=== PATIENT | male | born 1990 | race African-American/Black ===

== ENCOUNTER 2020-07-05 18:18 | Emergency (ER) | payer SELFPAY ==
[2020-07-05] MEDS ORDERED: BUPIVACAINE 0.5% PF 10 ML VIAL ONE (19:48)
--- NOTE | 2020-07-05 20:14 | ER ---
Nurse's Notes [facility] Name: Paul Garcia Age: 30 yrs Sex: Male : 1990 Arrival Date: 07/05/2020 Time: 18:27 Bed 30 Private MD: Diagnosis: Finger Laceration Presentation: 07/05 18:33 Coronavirus screen: Client denies travel out of the [place] in the last 14 days. At this ll1 time, the client does not indicate any symptoms associated with coronavirus-19. Ebola Screen: Patient denies travel to an Ebola-affected area in the 21 days before illness onset. Complicating Factors: There are no complicating factors for this patient. Initial Sepsis Screen: Does the patient meet any 2 criteria? No. Patient's initial sepsis screen is negative. Does the patient have a suspected source of infection? No. Patient's initial sepsis screen is negative. Risk Assessment: Do you want to hurt yourself or someone else? Patient reports no desire to harm self or others. Onset of symptoms was July 05, 2020. 18:33 Method Of Arrival: Ambulatory ll1 18:33 Acuity: MILANA 4 ll1 18:38 Chief complaint: Patient states: Accidentally cut L hand 2nd digit with knife 30 min ll1 [employer]. <2 cm laceration across finger, bleeding controlled with pressure. Pressure dressing applied to digit, tolerated well. Historical: - Allergies: 18:33 NKDA; ll1 - PSHx: 18:33 None; ll1 - Immunization history:: Last tetanus immunization: unknown, Flu vaccine is not up to date. - Social history:: Smoking status: Patient denies any tobacco usage or history of. Screenin:01 Abuse screen: Denies threats or abuse. Nutritional screening: No deficits noted. ea Tuberculosis screening: No symptoms or risk factors identified. Fall Risk None identified. Assessment: 20:02 General: Appears in no apparent distress. Behavior is calm, cooperative, appropriate ea for age. Pain: Complains of pain in dorsal aspect of middle phalanx of left index finger. Neuro: Level of Consciousness is awake, alert, obeys commands, Oriented to person, place, time. Cardiovascular: Patient's skin is warm and dry. Respiratory: Airway is patent Respiratory effort is even, unlabored, Respiratory pattern is regular, symmetrical. Derm: Skin is pink, warm \T\ dry. Musculoskeletal: Circulation, motion, and sensation intact. Injury Description: Laceration is clean, 0.5 to 2.5 cm long, is bleeding a small amount. 20:19 Reassessment: Patient and/or family updated on plan of care and expected duration. Pain ea level reassessed. Patient is alert, oriented x 3, equal unlabored respirations, skin warm/dry/pink. Discharge instruction given to patient verbalized the understanding of instruction. Pt left ED ambulatory tolerating well. Vital Signs: 18:33 BP 147 / 99; Pulse 80; Resp 18; Temp 98.0; Pulse Ox 96% ; Weight 131.54 kg; Height 5 ll1 ft. 11 in. (180.34 cm); Pain 3/10; 18:33 Body Mass Index 40.45 (131.54 kg, 180.34 cm) ll1 ED Course: 18:27 Patient arrived in ED. ds1 18:34 Triage completed. 1 18:34 Arm band placed on Patient placed in an exam room, on a stretcher. 1 19:27 Satish Fuller PA is PHCP. [facility] 19:27 Joni Alejo MD is Attending Physician. [facility] 20:01 Radha Avila, ALYSON is Primary Nurse. ea 20:01 Patient has correct armband on for positive identification. Bed in low position. Call ea light in reach. 20:03 Assist provider with laceration repair on dorsal aspect of middle phalanx of left index ea finger that was 2.5 cm. or less using sutures. Set up tray. Performed by Radha Avila RN Patient tolerated well. 20:20 Patient did not have IV access during this emergency room visit. ea Administered Medications: 20:13 Drug: Marcaine (bupivacaine) (0.5 %) 1 amp Volume: 10 ml; Route: Infiltration; ea Outcome: 20:14 Discharge ordered by . [facility] 20:20 Discharged to home ambulatory. ea 20:20 Condition: stable 20:20 Discharge instructions given to patient, Instructed on discharge instructions, follow up and referral plans. Demonstrated understanding of instructions, follow-up care. 20:20 Patient left the ED. ea Signatures: Satish Fuller PA PA Denisse Ortiz ds1 Radha Avila RN RN ea José Luis, Lynsay, RN RN ll1
--- NOTE | 2020-07-05 20:14 | EDPHYS ---
Physician Documentation [facility] Name: Paul Garcia Age: 30 yrs Sex: Male : 1990 Arrival Date: 07/05/2020 Time: 18:27 Bed 30 Private MD: ED Physician Joni Alejo HPI: 07/05 20:00 This 30 yrs old Black Male presents to ER via Ambulatory with complaints of Laceration jmm - Finger. 20:00 The patient or guardian reports injury, pain. Onset: The symptoms/episode jmm began/occurred acutely, just prior to arrival. Modifying factors: The symptoms are alleviated by nothing, the symptoms are aggravated by nothing. Associated signs and symptoms: Pertinent negatives: fever, numbness distally, tingling distally. This is a 30 year old male with no chronic medical conditions that presents to the ED with complaints of left 2nd finger laceration. Patient accidently cut her finger with a knife. Historical: - Allergies: 18:33 NKDA; ll1 - PSHx: 18:33 None; ll1 - Immunization history:: Last tetanus immunization: unknown, Flu vaccine is not up to date. - Social history:: Smoking status: Patient denies any tobacco usage or history of. ROS: 20:00 Constitutional: Negative for fever, chills, and weight loss, Cardiovascular: Negative jmm for chest pain, palpitations, and edema, Respiratory: Negative for shortness of breath, cough, wheezing, and pleuritic chest pain. 20:00 Skin: Positive for laceration(s). 20:00 All other systems are negative. Exam: 20:11 Constitutional: This is a well developed, well nourished patient who is awake, alert, jmm and in no acute distress. Head/Face: atraumatic. Eyes: EOMI, no conjunctival erythema appreciated ENT: Moist Mucus Membranes Neck: Trachea midline, Supple Chest/axilla: Normal chest wall appearance and motion. Cardiovascular: Regular rate and rhythm. No edema appreciated Respiratory: Normal respirations, no respiratory distress appreciated Abdomen/GI: Non distended, soft Back: Normal ROM 20:11 MS/ Extremity: Moves all extremities, no obvious deformities appreciated, no edema noted to the lower extremities Neuro: Awake and alert, normal gait Psych: Behavior is normal, Mood is normal, Patient is cooperative and pleasant 20:11 Skin: 1.5 cm laceration noted to the left 2nd finger. Vital Signs: 18:33 BP 147 / 99; Pulse 80; Resp 18; Temp 98.0; Pulse Ox 96% ; Weight 131.54 kg; Height 5 ll1 ft. 11 in. (180.34 cm); Pain 3/10; 18:33 Body Mass Index 40.45 (131.54 kg, 180.34 cm) ll1 Laceration: 20:12 Wound Repair of 1.5cm ( 0.6in ) subcutaneous laceration to dorsal aspect of middle jmm phalanx of left index finger. Distal neuro/vascular/tendon intact. Anesthesia: Digital block administered with 4 mls of 0.5% marcaine. Wound prep: Simple cleansing with betadine by me. Skin closed with 3 5-0 Prolene using simple sutures and sterile technique. Patient tolerated well. MDM: 19:30 Patient medically screened. [facility] 20:12 Data reviewed: vital signs, nurses notes. [facility] 20:12 Counseling: I had a detailed discussion with the patient and/or guardian regarding: the [facility] historical points, exam findings, and any diagnostic results supporting the discharge/admit diagnosis, the need for outpatient follow up, to return to the emergency department if symptoms worsen or persist or if there are any questions or concerns that arise at home. ED course: Patient is alert and non toxic in appearance in the ED. Patient is advised to follow up with pcp for surture removal and otherwise given strict return precautions. Patient understood and agrees with the plan of care. . Administered Medications: 20:13 Drug: Marcaine (bupivacaine) (0.5 %) 1 amp Volume: 10 ml; Route: Infiltration; ea Disposition: 07/06 05:27 Co-signature as Attending Physician, Joni Alejo MD I agree with the assessment and tw4 plan of care. Disposition: 07/05/20 20:14 Discharged to Home. Impression: Finger Laceration. - Condition is Stable. - Discharge Instructions: Laceration Care, Adult. - Medication Reconciliation Form, Thank You Letter, Antibiotic Education, Prescription Opioid Use form. - Follow up: Private Physician; When: 1 week; Reason: Recheck today's complaints, Continuance of care, Staple/Suture removal, Re-evaluation by your physician. Signatures: Satish Fuller PA PA jmm Antunez, Elena RN RN Joni Atkins MD MD tw4 Santiago Ordonez RN RN ll1 Corrections: (The following items were deleted from the chart) 07/05 20:20 20:14 07/05/2020 20:14 Discharged to Home. Impression: Finger Laceration. Condition is ea Stable. Forms are Medication Reconciliation Form, Thank You Letter, Antibiotic Education, Prescription Opioid Use. Follow up: Private Physician; When: 1 week; Reason: Recheck today's complaints, Continuance of care, Staple/Suture removal, Re-evaluation by your physician. selina
[2020-07-06 16:09] VITALS: BP 147/99; TEMP 98; O2SAT 96
== END 2020-07-05 20:20 | disposition home or self-care (01) ==
LOC: ER 18:18
PROC: 0JQK0ZZ Repair Left Hand Subcutaneous Tissue and Fascia, Open Approach (ICD-10-PCS; principal; 2020-07-05)
DX: S61.211A Laceration without foreign body of left index finger without damage to nail, initial encounter (principal); W26.0XXA Contact with knife, initial encounter; Y93.9 Activity, unspecified; Y92.9 Unspecified place or not applicable
CPT/HCPCS: 99283